=== PATIENT | male | born 1935 | race Caucasian/White ===

== ENCOUNTER 2017-08-08 14:17 | Inpatient (IN) | payer OTHER, BC ==
--- NOTE | 2017-08-08 14:42 | PDOC ---
History of Present Illness - General History Source: Patient, Spouse Exam Limitations: No Limitations - History of Present Illness Initial Comments: 08/08/17 15:17 The patient is an 82 year old male with past medical history of hypothyroidism, CAD (s/p angioplasty 20+ years ago), heart murmur, and pancreatic cancer (s/p whipple in 2013, in remission) who presents to the ED with complaints of acute dysarthria that began at approximately 1:30 pm today. As per patients , she noticed the patient was searching for his words. She states he then wrote down the wrong time when he documented taking his medications, writing 10:30 instead of 1:30. She states earlier in the day the patient did not feel well enough to drive his car either. The patient denies any headache, loss of sensation, numbness or tingling, or any other focal neurological deficits. He denies any changes in his gait. He denies any fever, chills, nausea, vomiting, diarrhea, cough, SOB, CP, palpitations, or urinary complaints. Allergies: NKDA Social: The patient states he is very active and spends 45 minutes at the gym daily walking on the treadmill. PCP: Dr. Leonides Powesr Documentation prepared by Ofelia Nash, acting as medical office administrator for Elaine Kraft MD. <Ofelia Nash - Last Filed: 08/08/17 17:16> <Elaine Kraft - Last Filed: 08/08/17 17:57> - General Chief Complaint: CVA/TIA Stated Complaint: POSSIBLE STROKE Time Seen by Provider: 08/08/17 14:42 Past History <Ofelia Nash - Last Filed: 08/08/17 17:16> - Past Medical History Cardiac Disorders: Yes (pancreatic ca) COPD: No Diabetes: Yes - Surgical History Cardiac Surgery: Yes (ANGIOPLASTY) - Suicide/Smoking/Psychosocial Hx Smoking History: Never smoked Hx Alcohol Use: Yes (SOCIAL) Drug/Substance Use Hx: No Substance Use Type: None <Elaine Kraft - Last Filed: 08/08/17 17:57> - Past Medical History Allergies/Adverse Reactions: Allergies Allergy/AdvReac Type Severity Reaction Status Date / Time No Known Allergies Allergy Verified 08/08/17 14:22 Home Medications: Ambulatory Orders Amlodipine Besylate [Norvasc -] 10 mg PO DAILY 12/15/14 Atorvastatin Ca [Lipitor -] 10 mg PO HS 12/15/14 Carvedilol 6.25 mg PO BID 12/15/14 Enalapril Maleate [Vasotec -] 20 mg PO BID 12/15/14 Hydrochlorothiazide [Hctz -] 25 mg PO DAILY 12/15/14 Levothyroxine [Synthroid -] 88 mcg PO DAILY 12/15/14 Lipase/Protease/Amylase [Solitario Mas 24,000 Units Capsule] 1 each PO BID 12/15/14 Metformin HCl 1,000 mg PO DAILY 12/15/14 Ketorolac Tromethamine 1 drop OD TID 08/08/17 Loteprednol Etab 0.5% Oph Susp [Lotemax (Nf)] 1 drop OD TID 08/08/17 Review of Systems - Review of Systems Able to Perform ROS?: Yes Comments:: 08/08/17 15:17 GENERAL/CONSTITUTIONAL: No fever or chills. No weakness. HEAD, EYES, EARS, NOSE AND THROAT: No change in vision. No ear pain or discharge. No sore throat. CARDIOVASCULAR: No chest pain or shortness of breath. RESPIRATORY: No cough, wheezing, or hemoptysis. GASTROINTESTINAL: No nausea, vomiting, diarrhea or constipation. GENITOURINARY: No dysuria, frequency, or change in urination. MUSCULOSKELETAL: No joint or muscle swelling or pain. No neck or back pain. SKIN: No rash NEUROLOGIC: (+) dysarthria No headache, vertigo, loss of consciousness, or change in strength/sensation. ENDOCRINE: No increased thirst. No abnormal weight change. HEMATOLOGIC/LYMPHATIC: No anemia, easy bleeding, or history of blood clots. ALLERGIC/IMMUNOLOGIC: No hives or skin allergy. All Other Systems: Reviewed and Negative <Ofelia Nash - Last Filed: 08/08/17 17:16> *Physical Exam - Vital Signs Last Vital Signs Temp Pulse Resp BP Pulse Ox 97.5 F L 65 18 155/69 98 08/08/17 14:18 08/08/17 14:18 08/08/17 14:18 08/08/17 14:18 08/08/17 15:04 - Physical Exam Comments: 08/08/17 15:18 GENERAL: Awake, alert x3, and fully oriented, in no acute distress HEAD: No signs of trauma EYES: PERRLA, EOMI, sclera anicteric, conjunctiva clear ENT: Auricles normal inspection, hearing grossly normal, nares patent, oropharynx clear without exudates. Moist mucosa NECK: Normal ROM, supple, no lymphadenopathy, JVD, or masses LUNGS: Breath sounds equal, clear to auscultation bilaterally. No wheezes, and no crackles HEART: Regular rate and rhythm, normal S1 and S2, no murmurs, rubs or gallops ABDOMEN: Soft, nontender, normoactive bowel sounds. No guarding, no rebound. No masses EXTREMITIES: Normal range of motion, no edema. No clubbing or cyanosis. No cords, erythema, or tenderness NEUROLOGICAL: 5/5 strength in tact in bilateral upper and lower extremities. Cranial nerves II through XII grossly intact. Slow speech, dysarthric, difficulty finding words. Normal gait SKIN: Warm, Dry, normal turgor, no rashes or lesions noted. <Ofelia Nash - Last Filed: 08/08/17 17:16> - Vital Signs Last Vital Signs Temp Pulse Resp BP Pulse Ox 97.5 F L 65 18 155/69 99 08/08/17 14:18 08/08/17 14:18 08/08/17 14:18 08/08/17 14:18 08/08/17 14:18 <Elaine Kraft - Last Filed: 08/08/17 17:57> NIH Stroke Scale - Last Known Well Date/Time & Onset Date Last Known Well: 08/08/17 Time Last Known Well: 13:30 - Initial Evaluation Level of consciousness: Alert Ask patient the month and their age: Answers both correctly Ask patient to open & close eyes; make fist and let go: Obeys both correctly Best gaze (horizontal eye movement): Normal Visual field testing: No visual field loss Facial paresis (Show teeth/raise eyebrows/close eyes tight): Normal symmetrical movement Motor Function: Left Arm: Normal Motor Function: Right Arm: Normal (extends arm 90 (or 45) degrees for 10 seconds without drift Motor Function: Left Leg: Normal (extends leg 30 degrees for 5 seconds without drift) Motor Function: Right Leg: Normal (extends leg 30 degrees for 5 seconds without drift) Limb Ataxia: No ataxia Sensory(Use pinprick test arms,legs,trunk,face/side to side): Normal Best language (Describe picture, name items, read sentences): Severe aphasia Dysarthria (read several words): Mild to moderate slurring of words Extinction and Inattention: No abnormality - Total Score NIH Stroke Scale Score: 3 <Elaine Kraft - Last Filed: 08/08/17 17:57> Critical Care Time/MDM Note - Medical Decision Making Note: 08/08/17 15:20 Documentation prepared by Ofelia Nash, acting as medical office administrator for Elaine Kraft MD. 16:00, 16:15 Phone calls sent to Dr. Henriquez. Call returned after second page. Case was discussed. 16:30 [address] Dr. Bryan, radiologist. Approval for con/non-con brain MRI. 08/08/17 17:16 Microblog sent to [facility]. Awaiting call back. <Ofelia Nash - Last Filed: 08/08/17 17:16> - Medical Decision Making Note: 08/08/17 17:10 Pt presents to the ED complaining of aphasia which has been mild over the last week and became acutely worse today. + aphasia and dysarthria on exam. Otherwise is neurologically intact. CT scan shows large area of vasogenic edema in the posterior parietal lobe. Concern for mass vs infarct. Will admit the patient and check MRI to evaluate for mass. Case discussed with Dr. Henriquez , who recommends waiting for MRI before the adminstration of decadron. <Elaine Kraft - Last Filed: 08/08/17 17:57> Discharge Disposition <CharityOfelia - Last Filed: 08/08/17 17:16> - Discharge Dispostion Admit: Yes <Elaine Kraft - Last Filed: 08/08/17 17:57> - Diagnosis Aphasia - Discharge Dispostion Condition at time of disposition: Good - Referrals Referrals: Leonides Powres [Primary Care Provider] - - Patient Instructions - Post Discharge Activity ED Treatment Course - LABORATORY CBC & Chemistry Diagram: 08/08/17 14:30 08/08/17 14:30 - ADDITIONAL ORDERS Additional order review: Laboratory Results 08/08/17 08/08/17 08/08/17 15:00 14:30 14:30 PT with INR INR Sodium Potassium Chloride Carbon Dioxide Anion Gap BUN Creatinine Creat Clearance w eGFR POC Glucometer 128.62371 Random Glucose Calcium Total Bilirubin AST ALT Alkaline Phosphatase Creatine Kinase Creatine Kinase Index CK-MB (CK-2) Troponin I Total Protein Albumin Triglycerides Cholesterol Total LDL Cholesterol HDL Cholesterol TSH 2.26 Blood Type A POSITIVE Antibody Screen Negative 08/08/17 08/08/17 14:30 14:30 PT with INR 10.90 INR 0.96 Sodium 133 L Potassium 4.7 Chloride 100 Carbon Dioxide 27 Anion Gap 6 L BUN 17 Creatinine 1.2 Creat Clearance w eGFR 57.82 POC Glucometer Random Glucose 115 H D Calcium 9.0 Total Bilirubin 0.6 AST 28 D ALT 23 Alkaline Phosphatase 94 Creatine Kinase 203 Creatine Kinase Index 1.8 CK-MB (CK-2) 3.855 H Troponin I < 0.02 Total Protein 8.0 Albumin 4.2 Triglycerides 161 H Cholesterol 155 Total LDL Cholesterol 62 HDL Cholesterol 83 H TSH Blood Type Antibody Screen 08/08/17 08/08/17 15:00 14:30 RBC 4.25 MCV 91.6 MCHC 34.1 RDW 14.5 MPV 8.0 Neutrophils % 81.0 Lymphocytes % 11.3 Monocytes % 6.0 Eosinophils % 1.2 Basophils % 0.5 POC Glucometer 128.54888 - RADIOLOGY Radiograph Interpretation: 08/08/17 16:[address] as reviewed by Dr. Bryan reports left posterior parietal hypodense area suspicious for vasogenic edema related to an inracerebral mass. Non- hemmorhagic infarct cannot be excluded Chest X-ray as reviewed by Dr. Turpin reports no acute pathology <Ofelia Nash - Last Filed: 08/08/17 17:16> - LABORATORY CBC & Chemistry Diagram: 08/08/17 14:30 08/08/17 14:30 <Elaine Kraft - Last Filed: 08/08/17 17:57>
[2017-08-08] MEDS ORDERED: SODIUM CHLORIDE 1,000 ML IV SCH (14:45)
[2017-08-08 14:56] LABS: BASO % 0.5 % (0-2.0); EOS % 1.2 % (0-4.5); HEMATOCRIT 38.9 % (35.4-49); HEMOGLOBIN 13.3 GM/dL (11.7-16.9); LYMPH % 11.3 % (8-40); MCH 31.2 pg (25.7-33.7); MCHC 34.1 g/dl (32.0-35.9); MEAN CELL VOLUME 91.6 fl (80-96); PLATELET COUNT 292 K/MM3 (134-434); RBC 4.25 M/mm3 (4.00-5.60); RDW 14.5 % (11.9-15.9); WHITE BLOOD COUNT 12.3 K/mm3 (4.0-10.0)
[2017-08-08 15:11] LABS: CHLORIDE 100 mmol/L (98-107); INR 0.96 (0.82-1.09); POTASSIUM 4.7 mmol/L (3.5-5.1); PROTHROMBIN TIME (PATIENT) 10.9 SEC (9.7-13.0); SODIUM 133 mmol/L (136-145)
[2017-08-08 15:18] LABS: ALBUMIN 4.2 g/dl (3.4-5.0); ANION GAP 6 (8-16); BLOOD UREA NITROGEN 17 mg/dL (7-18); CHOLESTEROL 155 mg/dL (50-200); CO2 27 mmol/L (21-32); CREATININE 1.2 mg/dL (0.7-1.3); GLUCOSE,RANDOM 115 mg/dL (74-106); SGOT/AST 28 U/L (15-37); SGPT/ALT 23 U/L (12-78)
[2017-08-08 15:19] LABS: BILIRUBIN,TOTAL 0.6 mg/dL (0.2-1.0); TRIGLYCERIDES 161 mg/dL (35-160)
[2017-08-08 15:20] LABS: ALK PHOS 94 U/L (45-117); HDL CHOLESTEROL 83 mg/dL (40-60)
--- NOTE | 2017-08-08 16:11 | EKG ---
Test Reason : Blood Pressure : / mmHG Vent. Rate : 065 BPM Atrial Rate : 065 BPM P-R Int : 150 ms QRS Dur : 092 ms QT Int : 378 ms P-R-T Axes : 023 010 047 degrees QTc Int : 393 ms NORMAL SINUS RHYTHM LOW VOLTAGE QRS BORDERLINE ECG WHEN COMPARED WITH ECG OF 15-DEC-2014 07:52, NO SIGNIFICANT CHANGE WAS FOUND Confirmed by MD Aguilar Daniel ([id number]) on 08/08/2017 4:10:59 PM Referred By: Confirmed By:Charlie Aguilar MD
--- NOTE | 2017-08-08 17:30 | HP ---
CHIEF COMPLAINT: Worsening aphasia PCP: Dr. Leonides Powers HISTORY OF PRESENT ILLNESS: 82 yo man with pmh of hypothyroidism, CAD (angioplast 20 years ago), DM2, and pancreatic cancer (whipple 2012), who presents to ED in setting of roughly 4 hour of aphasia and dysarthria. Two weeks prior to admission, pt states he has experienced intermittent brief periods of confusion, such as difficult balancing the checkbook, stating "the numbers just dont make sense". Pt is normally independent in all ADLS with no hx of dementia. On morning of admission , pt states he began experiencing a dull, left-sided headache without associated FNDs, vision or mental status changes around 7AM. Pt took an aspirin with some relief, however around 1:30 PM, pt's noted pt became notably dysarthric and aphasic, with significant delay in word-finding and poor articulation. Pt and deny any other FNDs, vision changes, N/V, loss of balance, ataxic gait, facial droop or other mental status changes at the time. Pt symptoms progressively resolved upon presentation to ED and were almost at baseline upon admission, with only mild delay in word-finding. Pt denies f/c/n/v /d, lightheadness, CP, SOB, cough, ab pain, back pain, LE edema, peripheral numbness or weakness, dysuria, melena, hematochezia, urinary retention. Pt with no hx of CVA/TIA, brain mass or dementia. Pt remains very active, exercising 45mins each day. He does not take anticoagulation at home. No hx of arrhythmias or prior blood clots. ER course was notable for: (1)WBC 12.3, Na 133 (2)CT head with large area of vasogenic edema in posterior parietal lobes (3)BP 155/69 NIH stroke score of 3 Recent Travel: none PAST MEDICAL HISTORY: hypothyroidism CAD (angioplasty 20 years ago) heart murmur pancreatic cancer (whipple 2012) DM2 PAST SURGICAL HISTORY: Whipple in 2013 Angioplasty 20 years ago Social History: Smoking:Never Alcohol: no Drugs: no Family History: [place] Allergies No Known Allergies Allergy (Verified 08/08/17 14:22) HOME MEDICATIONS: Home Medications Medication Instructions Recorded Amlodipine Besylate [Norvasc -] 10 mg PO DAILY 12/15/14 Atorvastatin Ca [Lipitor -] 10 mg PO HS 12/15/14 Carvedilol 6.25 mg PO BID 12/15/14 Enalapril Maleate [Vasotec -] 20 mg PO BID 12/15/14 Hydrochlorothiazide [Hctz -] 25 mg PO DAILY 12/15/14 Levothyroxine [Synthroid -] 88 mcg PO DAILY 12/15/14 Lipase/Protease/Amylase [Creon Dr 1 each PO BID 12/15/14 24,000 Units Capsule] Metformin HCl 1,000 mg PO DAILY 12/15/14 REVIEW OF SYSTEMS CONSTITUTIONAL: Absent: fever, chills, diaphoresis, generalized weakness, malaise, loss of appetite, weight change HEENT: Absent: rhinorrhea, nasal congestion, throat pain, throat swelling, difficulty swallowing, mouth swelling, ear pain, eye pain, visual changes CARDIOVASCULAR: Absent: chest pain, syncope, palpitations, irregular heart rate, lightheadedness , peripheral edema RESPIRATORY: Absent: cough, shortness of breath, dyspnea with exertion, orthopnea, wheezing, stridor, hemoptysis GASTROINTESTINAL: Absent: abdominal pain, abdominal distension, nausea, vomiting, diarrhea, constipation, melena, hematochezia GENITOURINARY: Absent: dysuria, frequency, urgency, hesitancy, hematuria, flank pain, genital pain MUSCULOSKELETAL: Absent: myalgia, arthralgia, joint swelling, back pain, neck pain SKIN: Absent: rash, itching, pallor HEMATOLOGIC/IMMUNOLOGIC: Absent: easy bleeding, easy bruising, lymphadenopathy, frequent infections ENDOCRINE: Absent: unexplained weight gain, unexplained weight loss, heat intolerance, cold intolerance NEUROLOGIC: dysarthria, aphasia, BURROUGHS Absent: focal weakness or paresthesias, dizziness, unsteady gait, seizure, mental status changes, bladder or bowel incontinence PSYCHIATRIC: Absent: anxiety, depression, suicidal or homicidal ideation, hallucinations. PHYSICAL EXAMINATION Vital Signs - 24 hr Intake & Output 08/05/17 08/06/17 08/07/17 08/08/17 23:59 23:59 23:59 23:59 Weight 74.843 kg 08/08/17 08/08/17 08/08/17 14:18 15:04 15:33 Temperature 97.5 F L Pulse Rate 65 Pulse Rate [ 68 Apical] Respiratory 18 18 Rate Blood Pressure 155/69 Blood Pressure 160/64 [Right Arm] O2 Sat by Pulse 99 98 99 Oximetry (%) GENERAL: Elderly man, NAD, A&Ox3 HEAD: Normal with no signs of trauma. EYES: Pupils equal, round and reactive to light, extraocular movements intact, sclera anicteric, conjunctiva clear. No lid lag. EARS, NOSE, THROAT: Ears normal, nares patent, oropharynx clear without exudates. Moist mucous membranes. NECK: Normal range of motion, supple without lymphadenopathy, JVD, or masses. LUNGS: Breath sounds equal, clear to auscultation bilaterally. No wheezes, and no crackles. No accessory muscle use. HEART: 3/6 systolic crescendo/decrescendo murmur at LUSB/RUSB. Regular rate and rhythm, normal S1 and S2 without rub or gallop. ABDOMEN: Soft, nontender, not distended, normoactive bowel sounds, no guarding, no rebound, no masses. No hepatomegaly or splenomegaly. MUSCULOSKELETAL: Normal range of motion at all joints. No bony deformities or tenderness. No CVA tenderness. UPPER EXTREMITIES: 2+ pulses, warm, well-perfused. No cyanosis. No clubbing. No peripheral edema. LOWER EXTREMITIES: 2+ pulses, warm, well-perfused. No calf tenderness. No peripheral edema. NEUROLOGICAL: Slight delayed in word finding, occasional thought-blocking. Cranial nerves II-XII intact. Normal speech. Normal gait. 5/5 strength in all extremities, sensation intact PSYCHIATRIC: Cooperative. Good eye contact. Appropriate mood and affect. SKIN: Warm, dry, normal turgor, no rashes or lesions noted, normal capillary refill. Laboratory Results - last 24 hr CBC, BMP 08/08/17 14:30 08/08/17 14:30 08/08/17 08/08/17 08/08/17 14:30 14:30 14:30 WBC 12.3 H RBC 4.25 Hgb 13.3 Hct 38.9 MCV 91.6 MCH 31.2 MCHC 34.1 RDW 14.5 Plt Count 292 D MPV 8.0 Neutrophils % 81.0 Lymphocytes % 11.3 Monocytes % 6.0 Eosinophils % 1.2 Basophils % 0.5 PT with INR 10.90 INR 0.96 Sodium 133 L Potassium 4.7 Chloride 100 Carbon Dioxide 27 Anion Gap 6 L BUN 17 Creatinine 1.2 Creat Clearance w eGFR 57.82 POC Glucometer Random Glucose 115 H D Calcium 9.0 Total Bilirubin 0.6 AST 28 D ALT 23 Alkaline Phosphatase 94 Creatine Kinase 203 Creatine Kinase Index 1.8 CK-MB (CK-2) 3.855 H Troponin I < 0.02 Total Protein 8.0 Albumin 4.2 Triglycerides 161 H Cholesterol 155 Total LDL Cholesterol 62 HDL Cholesterol 83 H TSH Blood Type Antibody Screen 08/08/17 08/08/17 08/08/17 14:30 14:30 15:00 WBC RBC Hgb Hct MCV MCH MCHC RDW Plt Count MPV Neutrophils % Lymphocytes % Monocytes % Eosinophils % Basophils % PT with INR INR Sodium Potassium Chloride Carbon Dioxide Anion Gap BUN Creatinine Creat Clearance w eGFR POC Glucometer 128.23151 Random Glucose Calcium Total Bilirubin AST ALT Alkaline Phosphatase Creatine Kinase Creatine Kinase Index CK-MB (CK-2) Troponin I Total Protein Albumin Triglycerides Cholesterol Total LDL Cholesterol HDL Cholesterol TSH 2.26 Blood Type A POSITIVE Antibody Screen Negative No micro EKG - rate of 65, NSR, qtc 393, no st/tw changes CXR 6 - No pathology Head CT 08/08 - IMPRESSION: Left posterior parietal hypodense area suspicious for vasogenic edema related to an intracerebral mass. A nonhemorrhagic infarct cannot be excluded. MRI follow-up recommended. Please see above discussion. MRI brain w/wo contrast / - Impression: Large 4 by 3.2 x 3.8 cm enhancing nonhemorrhagic lesion in the posterior parietal lobe predominantly in the lino matter with perifocal extensive white matter edema involving the left parietal lobe and lateral aspect of the the occipital lobe with mass effect on the posterior horn of the left lateral ventricles. The lesion is suspicious of primary malignancy such as a glioblastoma multiform or less likely metastatic focus or lymphoma. Further evaluation recommended No evidence acute infarction No evidence of intracerebral hemorrhage, subdural fluid collection or hydrocephalus. The cavernous sinus details and cerebellopontine angles unremarkable. Few old small vessel infarctions in periventricular distribution of both cerebral hemisphere sequela most probably to hypertension or small vessel atherosclerosis. ASSESSMENT/PLAN: 82 yo man with pmh of hypothyroidism, CAD (angioplast 20 years ago), DM2, and pancreatic cancer (whipple 2012), who presents to ED in setting of roughly 4 hour of aphasia and dysarthria. 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 Henriquez following - Imaging as noted above - Started on PO Decadron 12mg q6h per neuro recs - neurosurgery consulted (Dr. Harley) - Serial neuro checks q4h - head elevation above 30 degrees - consider seizure ppx; f/u with neuro - Oncology consulted; consider rad onc consult - cardiac monitoring #DM2 - ISS - BGMs - holding home metformin #hypothyroidism - c/w home levoxyl #CAD- angioplasty 20 years ago - no active issues; no home meds #HTN - c/w home coreg, norvasc #Pancreatic Ca - s/p whipple 2012 - consider restarting creon - oncology consulted PPX will start on heparin pending neurosurgery eval FEN PO hydration daily lytes Diabetic diet Plan discussed with Dr. Katelin Shannon, PGY1 Visit type - Emergency Visit Emergency Visit: Yes ED Registration Date: 08/08/17 Care time: The patient presented to the Emergency Department on the above date and was hospitalized for further evaluation of their emergent condition. - New Patient This patient is new to me today: Yes Date on this admission: 08/09/17 - Critical Care Critical Care patient: No Hospitalist Screening - Colonoscopy Questionnaire Colonoscopy Questionnaire: Colonoscopy Questionnaire - Patient: 50 - 75 years old and never had a screening colonoscopy: Unknown History of colon or rectal polyps, or CA: Unknown History of IBD, Crohn's disease or UC: Unknown History of abdominal radiation therapy as a child: Unknown - Relative: 1 with colon or rectal CA, or polyps at age 60 or younger: Unknown Colon or rectal CA diagnosed at age 45 or younger: Unknown Multiple relatives with colon or rectal CA: Unknown - Outcome: Screening Result: Negative Screen
--- NOTE | 2017-08-08 19:34 | PN ---
Teaching Attending Note Name of Resident: Baron Shannon ATTENDING PHYSICIAN STATEMENT I saw and evaluated the patient. I reviewed the resident's note and discussed the case with the resident. I agree with the resident's findings and plan as documented. SUBJECTIVE: Patient is an 82 year old male with PMHx of hypothyroidism, CAD (s/p angioplasty 20+ years ago), and pancreatic cancer (s/p whipple in 2012, in remission) with chemotherapy who presents to the ED with complaints of acute dysarthria that began at approximately 1:30 pm today. OBJECTIVE: Vital Signs Temperature 97.5 F L 08/08/17 14:18 Pulse Rate 68 08/08/17 17:57 Respiratory Rate 17 08/08/17 17:57 Blood Pressure 180/99 08/08/17 17:57 O2 Sat by Pulse Oximetry (%) 98 08/08/17 17:57 GENERAL: Nice gentleman, NAD, A&Ox3 HEAD: Normal with no signs of trauma. EYES: Pupils equal, round and reactive to light, extraocular movements intact, sclera anicteric, conjunctiva clear. EARS, NOSE, THROAT: Ears normal, oralpharynx clear without exudates. Moist mucous membranes. NECK: Normal range of motion, supple without lymphadenopathy, JVD, or masses. LUNGS: Breath sounds equal, clear to auscultation bilaterally. No wheezes, and no crackles. No accessory muscle use. HEART: Regular rate and rhythm, normal S1 and S2 without murmur, rub or gallop. ABDOMEN: Soft, nontender, not distended, normoactive bowel sounds, no guarding, no rebound, no masses. No hepatomegaly or splenomegaly. EXTREMITIES: 2+ pulses, warm, well-perfused. No cyanosis. No clubbing. No peripheral edema. NEUROLOGICAL: CN2-12 grossly intact, Slow speech, dysarthia with occasional poor finding words.Strength 5/5 PSYCHIATRIC: Cooperative. Good eye contact. Appropriate mood and affect. SKIN: Warm, dry, normal turgor, no rashes or lesions noted, normal capillary refill. CBCD WBC 12.3 K/mm3 (4.0-10.0) H 08/08/17 14:30 RBC 4.25 M/mm3 (4.00-5.60) 08/08/17 14:30 Hgb 13.3 GM/dL (11.7-16.9) 08/08/17 14:30 Hct 38.9 % (35.4-49) 08/08/17 14:30 MCV 91.6 fl (80-96) 08/08/17 14:30 MCHC 34.1 g/dl (32.0-35.9) 08/08/17 14:30 RDW 14.5 % (11.9-15.9) 08/08/17 14:30 Plt Count 292 K/MM3 (134-434) D 08/08/17 14:30 MPV 8.0 fl (7.5-11.1) 08/08/17 14:30 CMP Sodium 133 mmol/L (136-145) L 08/08/17 14:30 Potassium 4.7 mmol/L (3.5-5.1) 08/08/17 14:30 Chloride 100 mmol/L (98-107) 08/08/17 14:30 Carbon Dioxide 27 mmol/L (21-32) 08/08/17 14:30 Anion Gap 6 (8-16) L 08/08/17 14:30 BUN 17 mg/dL (7-18) 08/08/17 14:30 Creatinine 1.2 mg/dL (0.7-1.3) 08/08/17 14:30 Creat Clearance w eGFR 57.82 (>60) 08/08/17 14:30 Random Glucose 115 mg/dL (74-106) H D 08/08/17 14:30 Calcium 9.0 mg/dL (8.5-10.1) 08/08/17 14:30 Total Bilirubin 0.6 mg/dL (0.2-1.0) 08/08/17 14:30 AST 28 U/L (15-37) D 08/08/17 14:30 ALT 23 U/L (12-78) 08/08/17 14:30 Alkaline Phosphatase 94 U/L (45-117) 08/08/17 14:30 Total Protein 8.0 g/dl (6.4-8.2) 08/08/17 14:30 Albumin 4.2 g/dl (3.4-5.0) 08/08/17 14:30 CARDIAC ENZYMES Creatine Kinase 203 IU/L (39-308) 08/08/17 14:30 Troponin I < 0.02 ng/ml (0.00-0.05) 08/08/17 14:30 Current Medications Generic Name Dose Route Start Last Admin Trade Name Jesus PRN Reason Stop Dose Admin Sodium Chloride 1,000 mls @ 42 mls/hr 08/08/17 14:45 08/08/17 14:55 Normal Saline - IV 42 mls/hr ASDIR GATO Administration Home Medications Medication Instructions Recorded Amlodipine Besylate [Norvasc -] 10 mg PO DAILY 12/15/14 Atorvastatin Ca [Lipitor -] 10 mg PO HS 12/15/14 Carvedilol 6.25 mg PO BID 12/15/14 Enalapril Maleate [Vasotec -] 20 mg PO BID 12/15/14 Hydrochlorothiazide [Hctz -] 25 mg PO DAILY 12/15/14 Levothyroxine [Synthroid -] 88 mcg PO DAILY 12/15/14 Lipase/Protease/Amylase [Creon Dr 1 each PO BID 12/15/14 24,000 Units Capsule] Metformin HCl 1,000 mg PO DAILY 12/15/14 Ketorolac Tromethamine 1 drop OD TID 08/08/17 Loteprednol Etab 0.5% Oph Susp 1 drop OD TID 08/08/17 [Lotemax (Nf)] MRI result: Large 4 by 3.2 x 3.8 enhancing nonhemorrhagic lesion in the posterior lobe predominantly in lino matter with perifocal extensive white matter edema involving the left parietal lobe ans lateral aspect of the occipital with mass effect on the posterior horn of the left lateral ventricles. [place] primary malignancy vs Glioblastoma multiform or less likely metastatic focus vs lymphoma. ASSESSMENT AND PLAN: Patient is an 82 year old male with PMHx of hypothyroidism, CAD (s/p angioplasty 20+ years ago), and pancreatic cancer diagnosed in 2012 and patient went for investigational drug treatment in 2013 (s/p whipple in 2012, in remission now) with chemotherapy who presents to the ED with complaints of acute dysarthria that began at approximately 1:30 pm today. 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 will start him on Decadron IV followed with PO decadron 4mg q6, neuro consulted , Neurosurgery Dr.Tom dockery consulted, Oncolgy consulted, might need Rtx oncology consult. # Hx of T2DM on sliding scale with coverage. # HTN Uncontrolled continue Coreg, Norvasc daily # hx of Hypothyroidism continue Levoxyl DVT Px: Heparin sq
[2017-08-08] MEDS ORDERED: DEXAMETHASONE SOD PHOSPHATE 20 MG/5 ML VIAL IVPB ONE (19:39)
[2017-08-08] MEDS ORDERED: DEXAMETHASONE SOD PHOSPHATE 4 MG/1 ML VIAL ONE (20:03)
[2017-08-08] MEDS ORDERED: DEXAMETHASONE SOD PHOSPHATE 10 MG/1 ML VIAL ONE (20:03)
[2017-08-08] MEDS: DEXAMETHASONE 4 MG TABLET (FP) PO SCH (20:55)
[2017-08-08] MEDS: KETOROLAC TROMETHAMINE 0.5% 5 ML BOTTLE OPTHALMIC OD SCH (23:43)
[2017-08-08] MEDS ORDERED: CARVEDILOL 3.125 MG TABLET (FP) ONE (23:46)
[2017-08-08] MEDS ORDERED: amLODIPine BESYLATE 5 MG TABLET (FP) ONE (23:46)
[2017-08-09] MEDS ORDERED: ATORVASTATIN CA 40 MG TABLET (FP) ONE (00:12)
[2017-08-09] MEDS: amLODIPine BESYLATE 10 MG TABLET (FP) PO SCH ×2 (00:24→10:10)
[2017-08-09] MEDS: CARVEDILOL 6.25 MG TABLET (FP) PO SCH ×2 (00:25→10:10)
[2017-08-09] MEDS: DEXAMETHASONE 4 MG TABLET (FP) PO SCH ×2 (05:54→11:30)
[2017-08-09] MEDS: KETOROLAC TROMETHAMINE 0.5% 5 ML BOTTLE OPTHALMIC OD SCH (06:00)
[2017-08-09] MEDS ORDERED: LEVOTHYROXINE NA 88 MCG TABLET (FP) PO SCH (07:00)
[2017-08-09] MEDS ORDERED: INSULIN REGULAR HUMAN 100 UNITS/ML *VIAL ONE ×2 (07:50→11:12)
[2017-08-09] MEDS: INSULIN SLIDING SCALE (NOVOLOG) 1 VIAL SQ SCH ×2 (07:53→11:05)
--- NOTE | 2017-08-09 10:52 | CONSULT ---
Consult - text type - Consultation Consultation Note: NEUROLOGY CONSULTATION is greatly appreciated: Events reviewed and discussed with ED and Dr. Thomason. Patient examined with his at the bedside who aids with the history. This 82 yo RH, man with h/o HTN, hypothyroidism, ASHD (s/p angioplasty > 20 years go is s/p Whipple, Chemo and RT for pancreatic CA 2012. 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 Last week he drove off the road to the right. Yesterday he developed confused speech and reversed numbers. Pt and his agree the speech and comprehension are much better this morning after initiation of decadron Rx last night. CT of head (reviewed): shows pattern of vasogenic edema in the left parietal white matter. MRI of brain (reviewed): Shows a discrete left occipital mass with surrounding edema. WBC=12.3K Cr=1.2 EXAM: No bruits. Cor reg. Thin legs. Pes Cavus NEURO: Awake, alert, cooperative. Fluent, gibberish speech. Follows 1, 2 step commands. Dense Right homonomous hemianopsia Min Right drift. Normal grasps. Normal ankle dorsiflexion Areflexic in the legs. Toes downgoing. Coord: No FTN dystaxia Sensory: Reduced vibration to both calves. IMP: Left occipetal mass with homonmous hemianopsia and fluent (Wernicke's type ) aphasia. Possibly malignant (Met more likely than primary by MRI appearance). R/O abscess. SUGGEST: Hydrate for CT of head with contrast. Continue decadron 4 mg PO q 6 hrs. Consider transfer to [facility] under care of his oncologist and for Neurosurgical opinion. Thank you very much, Julius Henriquez MD
[2017-08-09 11:32] VITALS: BP 152/68; PULSE 65
[2017-08-09 12:50] VITALS: BMI 25.8
[2017-08-09 13:01] VITALS: TEMP 98.2
--- NOTE | 2017-08-09 14:12 | PN ---
Teaching Attending Note Name of Resident: Ina Lili Perez ATTENDING PHYSICIAN STATEMENT I saw and evaluated the patient. I reviewed the resident's note and discussed the case with the resident. I agree with the resident's findings and plan as documented. SUBJECTIVE: OBJECTIVE: Vital Signs Period Temp Pulse Resp BP Sys/Umaña Pulse Ox Last 24 Hr 97.5 F-98.6 F 58-68 17-20 131-180/64-99 96-99 Laboratory Results - last 24 hr 08/08/17 08/08/17 08/08/17 14:30 14:30 14:30 WBC 12.3 H RBC 4.25 Hgb 13.3 Hct 38.9 MCV 91.6 MCH 31.2 MCHC 34.1 RDW 14.5 Plt Count 292 D MPV 8.0 Neutrophils % 81.0 Lymphocytes % 11.3 Monocytes % 6.0 Eosinophils % 1.2 Basophils % 0.5 PT with INR 10.90 INR 0.96 Sodium 133 L Potassium 4.7 Chloride 100 Carbon Dioxide 27 Anion Gap 6 L BUN 17 Creatinine 1.2 Creat Clearance w eGFR 57.82 POC Glucometer Random Glucose 115 H D Calcium 9.0 Total Bilirubin 0.6 AST 28 D ALT 23 Alkaline Phosphatase 94 Creatine Kinase 203 Creatine Kinase Index 1.8 CK-MB (CK-2) 3.855 H Troponin I < 0.02 Total Protein 8.0 Albumin 4.2 Triglycerides 161 H Cholesterol 155 Total LDL Cholesterol 62 HDL Cholesterol 83 H TSH Blood Type Antibody Screen 08/08/17 08/08/17 08/08/17 14:30 14:30 15:00 WBC RBC Hgb Hct MCV MCH MCHC RDW Plt Count MPV Neutrophils % Lymphocytes % Monocytes % Eosinophils % Basophils % PT with INR INR Sodium Potassium Chloride Carbon Dioxide Anion Gap BUN Creatinine Creat Clearance w eGFR POC Glucometer 128.78924 Random Glucose Calcium Total Bilirubin AST ALT Alkaline Phosphatase Creatine Kinase Creatine Kinase Index CK-MB (CK-2) Troponin I Total Protein Albumin Triglycerides Cholesterol Total LDL Cholesterol HDL Cholesterol TSH 2.26 Blood Type A POSITIVE Antibody Screen Negative 08/09/17 08/09/17 08/09/17 00:07 07:43 11:04 WBC RBC Hgb Hct MCV MCH MCHC RDW Plt Count MPV Neutrophils % Lymphocytes % Monocytes % Eosinophils % Basophils % PT with INR INR Sodium Potassium Chloride Carbon Dioxide Anion Gap BUN Creatinine Creat Clearance w eGFR POC Glucometer 169.62247 193.29057 [phone] Random Glucose Calcium Total Bilirubin AST ALT Alkaline Phosphatase Creatine Kinase Creatine Kinase Index CK-MB (CK-2) Troponin I Total Protein Albumin Triglycerides Cholesterol Total LDL Cholesterol HDL Cholesterol TSH Blood Type Antibody Screen Current Medications Generic Name Dose Route Start Last Admin Trade Name Jesus PRN Reason Stop Dose Admin Amlodipine Besylate 10 mg 08/08/17 20:00 08/09/17 10:10 Norvasc - PO 10 mg DAILY GATO Administration Carvedilol 6.25 mg 08/08/17 22:00 08/09/17 10:10 Coreg - PO 6.25 mg BID GATO Administration Dexamethasone 4 mg 08/08/17 20:00 08/09/17 11:30 Decadron - PO 4 mg Q6HPO GATO Administration Sodium Chloride 1,000 mls @ 42 mls/hr 08/08/17 14:45 08/08/17 14:55 Normal Saline - IV 42 mls/hr ASDIR GATO Administration Insulin Aspart 1 vial 08/08/17 22:00 08/09/17 11:05 Novolog Vial Sliding Scale - SQ 4 units ACHS GATO Administration Protocol Ketorolac Tromethamine 1 drop 08/08/17 22:00 08/09/17 06:00 Ketorolac Tromethamine OD 1 drop TID GATO Administration Levothyroxine Sodium 88 mcg 08/09/17 07:00 08/09/17 06:01 Synthroid - PO 88 mcg 0700 GATO Administration Non-Formulary Medication 1 drop 08/08/17 22:00 Loteprednol Etab 0.5% Oph Susp [Lotemax (Nf)] OD TID GATO ASSESSMENT AND PLAN:
--- NOTE | 2017-08-09 18:09 | DS ---
Physical Exam: SUBJECTIVE: Patient seen and examined. Aphasia is improved today. MRI done. Pt requesting transfer transfer to [facility]. OBJECTIVE: Vital Signs Period Temp Pulse Resp BP Sys/Umaña Pulse Ox Last 24 Hr 98.1 F-98.6 F 58-65 17-20 131-152/68-84 96-98 Vital Signs Temp 98.2 F 08/09/17 12:00 Pulse 65 08/09/17 12:00 Resp 20 08/09/17 12:00 BP 152/68 08/09/17 12:00 Pulse Ox 98 08/09/17 11:31 Intake & Output 08/08/17 08/09/17 08/09/17 23:59 11:59 23:59 Weight 74.843 kg 74.843 kg Other: Height 1.71 m 1.7 m Body Mass Index (BMI) 25.4 25.8 Weight Measurement Method Stated by Patient PHYSICAL EXAM GENERAL: The patient is awake, alert, and fully oriented, in no acute distress. Occasionally missing words HEAD: Normal with no signs of trauma. EYES: PERRL, extraocular movements intact, ENT: moist mucous membranes. NECK: supple. LUNGS: Breath sounds equal, clear to auscultation bilaterally HEART: Regular rate and rhythm, S1, S2 ABDOMEN: Soft, nontender, nondistended, normoactive bowel sounds, EXTREMITIES: 2+ pulses, warm, well-perfused, no edema. NEUROLOGICAL: Cranial nerves II through XII grossly intact. Combination of receptive and expressive aphasia, improved from prior, gait not observed. Sensation- light touch appears equal on both sides. Hyperreflexia bilateral UE. PSYCH: Normal mood, normal affect. SKIN: Warm, dry, LABS Laboratory Results - last 24 hr 08/09/17 08/09/17 08/09/17 00:07 07:43 11:04 POC Glucometer 169.82026 193.74152 [phone] HOSPITAL COURSE: Date of Admission:08/08/17 Date of Discharge: 08/09/17 You came in for inability to write and express yourself verbally A CT scan of the head showed a mass on the L side of your head An MRI showed the mass more posteriorly on the L The mass could be a metastases, a primary cancer or a lymphoma We are transferring you to [facility] where your oncologist is for further management Minutes to complete discharge: 40 Discharge Summary Reason For Visit: APHASIA Condition: Stable - Instructions Diet, Activity, Other Instructions: You were admitted for difficulty talking , writing and poor vision We did a CT head that showed a swelling and mass on the L side of your brain. 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 You requested a transfer to [facility], where your oncologist and primary doctor are for continuity of care, follow up and management You are being transported by ambulance and have been accepted by [facility] Referrals: Leonides Powers [Primary Care Provider] - 1 Week Disposition: TRANSFER ACUTE CARE/OTHER HOSP - Home Medications Comprehensive Discharge Medication List: Ambulatory Orders Amlodipine Besylate [Norvasc -] 10 mg PO DAILY 12/15/14 Atorvastatin Ca [Lipitor -] 10 mg PO HS 12/15/14 Carvedilol 6.25 mg PO BID 12/15/14 Enalapril Maleate [Vasotec -] 20 mg PO BID 12/15/14 Hydrochlorothiazide [Hctz -] 25 mg PO DAILY 12/15/14 Levothyroxine [Synthroid -] 88 mcg PO DAILY 12/15/14 Lipase/Protease/Amylase [Creon Dr 24,000 Units Capsule] 1 each PO BID 12/15/14 Metformin HCl 1,000 mg PO DAILY 12/15/14 Ketorolac Tromethamine 1 drop OD TID 08/08/17 Loteprednol Etab 0.5% Oph Susp [Lotemax (Nf)] 1 drop OD TID 08/08/17 This patient is new to me today: Yes Date on this admission: 08/09/17 Emergency Visit: Yes ED Registration Date: 08/08/17 Care time: The patient presented to the Emergency Department on the above date and was hospitalized for further evaluation of their emergent condition. Critical Care patient: No - Discharge Referral Referred to [facility] Med P.C.: No
--- NOTE | 2017-08-09 21:04 | DS ---
Physical Exam: SUBJECTIVE: Patient seen and examined. Aphasia noted to have improved. Patient now better able to express himself, although missing OBJECTIVE: Vital Signs Period Temp Pulse Resp BP Sys/Umaña Pulse Ox Last 24 Hr 98.1 F-98.6 F 58-65 17-20 131-152/68-76 96-98 PHYSICAL EXAM GENERAL: The patient is awake, alert, and fully oriented, in no acute distress. HEAD: Normal with no signs of trauma. EYES: PERRL, extraocular movements intact, sclera anicteric, conjunctiva clear. ENT: Ears normal, nares patent, oropharynx clear without exudates, moist mucous membranes. NECK: Trachea midline, full range of motion, supple. LUNGS: Breath sounds equal, clear to auscultation bilaterally, no wheezes, no crackles, no accessory muscle use. HEART: Regular rate and rhythm, S1, S2 without murmur, rub or gallop. ABDOMEN: Soft, nontender, nondistended, normoactive bowel sounds, no guarding, no rebound, no hepatosplenomegaly, no masses. EXTREMITIES: 2+ pulses, warm, well-perfused, no edema. NEUROLOGICAL: Cranial nerves II through XII grossly intact. Normal speech, gait not observed. PSYCH: Normal mood, normal affect. SKIN: Warm, dry, normal turgor, no rashes or lesions noted. LABS Laboratory Results - last 24 hr 08/09/17 08/09/17 08/09/17 00:07 07:43 11:04 POC Glucometer 169.86056 193.12696 [phone] HOSPITAL COURSE: Date of Admission:08/08/17 Date of Discharge: 08/09/17 Discharge Summary Reason For Visit: APHASIA Condition: Stable - Instructions Diet, Activity, Other Instructions: You were admitted for difficulty talking , writing and poor vision We did a CT head that showed a swelling and mass on the L side of your brain. 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, where your oncologist and primary doctor are for continuity of care, follow up and management You are being transported by ambulance and have been accepted by [facility] Referrals: Leonides Powers [Primary Care Provider] - 1 Week Disposition: TRANSFER ACUTE CARE/OTHER HOSP - Home Medications Comprehensive Discharge Medication List: Ambulatory Orders Amlodipine Besylate [Norvasc -] 10 mg PO DAILY 12/15/14 Atorvastatin Ca [Lipitor -] 10 mg PO HS 12/15/14 Carvedilol 6.25 mg PO BID 12/15/14 Enalapril Maleate [Vasotec -] 20 mg PO BID 12/15/14 Hydrochlorothiazide [Hctz -] 25 mg PO DAILY 12/15/14 Levothyroxine [Synthroid -] 88 mcg PO DAILY 12/15/14 Lipase/Protease/Amylase [[address] Dr 24,000 Units Capsule] 1 each PO BID 12/15/14 Metformin HCl 1,000 mg PO DAILY 12/15/14 Ketorolac Tromethamine 1 drop OD TID 08/08/17 Loteprednol Etab 0.5% Oph Susp [Lotemax (Nf)] 1 drop OD TID 08/08/17 - Discharge Referral Referred to [facility] No
== END 2017-08-09 12:00 | disposition short-term general hospital (02) | DRG 54 ==
LOC: JER 14:17 → JERBED 17:57
PROVIDERS: ADMIT Internal Medicine; ATTEND Internal Medicine
DX: D49.6 Neoplasm of unspecified behavior of brain (principal); G93.6 Cerebral edema; R47.01 Aphasia; R22.0 Localized swelling, mass and lump, head; E03.9 Hypothyroidism, unspecified; I25.10 Atherosclerotic heart disease of native coronary artery without angina pectoris; E11.9 Type 2 diabetes mellitus without complications; I10 Essential (primary) hypertension
CPT/HCPCS: 36415; 70450-TC; 70553-TC; 71045-TC-FY; 80053; 82465; 82550; 82553; 82962; 83718; 83721; 84443; 84478; 84484; 85025; 85610; 86850; 86900; 86901; 93005; 93010; 93306-TC; 99285-25; J7030